=== PATIENT | female | born 1940 | race Caucasian/White ===

== ENCOUNTER → 2017-04-12 | Outpatient (CLI) | payer MEDICARE, BC ==
[~2017-04-12] MED LIST: LO-DOSE ASPIRIN81 M1 PO; LOVASTATIN20 MG PO
--- NOTE | ~2017-04-12 | MR17 ---
[facility] A Service of [facility] RADIOLOGY TEXT RESULTS PATIENT: LARISA MO LOCATION: [facility] [address] : [birth year] UNIT #: [id number] AGE: [address]: Clem Vasquez MD SEX: F ORDER DR: [id number] [place] [id number] O MR#: [id number] Acc #: [id number] NAME: LARISA MO : 1940 SEX: F STUDY DATE/TIME: 04/12/2017 15:27 UNIT: SNIV ROOM: STUDY DESCRIPTION: MR Brain WWo Contrast Attending Physician: Clem Vasquez M.D. Referring Physician: Clem Vasquez M.D. Ordering Physician: Clem Vasquez M.D. Primary Care Physician: Clem Vasquez M.D. MRI CENTER REPORT This report is preliminary unless electronic signature is present. EXAM MR brain 04/12 INDICATIONS Dizziness for the last 2-3 weeks. Some associated nausea and vomiting. TECHNIQUE Multisequence multiplanar imaging was performed through the brain before and after the IV administration of 11 mL of MultiHance contrast. COMPARISON STUDIES Comparison is made with the brain MRI dated 08/30/2010. FINDINGS Diffusion imaging reveals no evidence of acute or subacute infarct. Ventricular size and configuration are within normal limits. There is generalized atrophy. Chronic small vessel ischemic changes are present in the white matter. These appear only minimally progressive since the prior study. White matter signal is otherwise normal. No masses are identified, and there is no pathologic contrast enhancement. There is no evidence of hemorrhage. Major intracranial flow voids are maintained. Craniovertebral junction is normal. IMPRESSION 1. No acute findings in the brain. No evidence of acute or subacute stroke. No hemorrhage. 2. No masses or abnormal contrast enhancement. 3. Relatively mild chronic small vessel ischemic change in the white matter for patient age. This is only minimally progressive since the MRI of 2009. Dictated by... [facility] A Service [facility] RADIOLOGY TEXT RESULTS PATIENT: LARISA MO LOCATION: [facility] [address] : [birth year] UNIT #: [id number] AGE: [address]: Clem Vasquez MD SEX: F ORDER DR: Adrian Harper Jr., M.D. THIS IS AN ELECTRONICALLY VERIFIED REPORT Adrian Harper Jr., M.D. at 04/15/2017 5:01 PM DEE/kate TD: 04/15/2017 16:31 JOB #: [id number] MRI CENTER REPORT Page 1 of 1
--- NOTE | ~2017-04-12 | US37 ---
[facility]. [facility] A Service of [facility] RADIOLOGY TEXT RESULTS PATIENT: LARISA MO LOCATION: SNIV : 40 UNIT #: [id number] AGE: [address]: Clem Vasquez MD SEX: F ORDER DR: [id number] [place] [id number] O MR#: [id number] Acc #: [id number] NAME: LARISA MO : 1940 SEX: F STUDY DATE/TIME: 04/12/2017 11:15 UNIT: SNIV ROOM: STUDY DESCRIPTION: US Carotid W/Doppler Bilateral Attending Physician: Clem Vasquez M.D. Referring Physician: Clem Vasquez M.D. Ordering Physician: Clem Vasquez M.D. Primary Care Physician: Clem Vasquez M.D. MEDICAL IMAGING REPORT This report is preliminary unless electronic signature is present. EXAM Carotid Doppler bilateral, 04/12/17. HISTORY Vertigo, dizziness for 2 weeks with loss of balance and coordination. Evaluate for carotid stenosis. FINDINGS Magallanes-scale carotid artery images were obtained as well as Doppler waveform spectral analysis and color flow Doppler imaging. The examination was interpreted according to NASCET criteria. There is no hemodynamically significant stenosis in either carotid artery. Peak systolic velocity in the right and left internal carotid arteries is 73 cm/sec and 85 cm/sec respectively. Antegrade blood flow is seen both vertebral arteries. IMPRESSION No hemodynamically significant stenosis in either carotid artery. Dictated by... Billy De La Torre M.D. THIS IS AN ELECTRONICALLY VERIFIED REPORT Billy De La Torre M.D. at 04/12/2017 4:34 PM WILBERT/chelsea TD: 04/12/2017 15:59 JOB #: [id number] MEDICAL IMAGING REPORT Page 1 of 1
[2017-04-12 16:06] LABS: POC - CREATININE 0.81 mg/dL (0.44-1.03); POC - GFR >60.0 mL/min (>60)
== END | disposition home or self-care (01) ==
LOC: SNIV 04-11 10:30 → SMRI 11:45 → SNIV 13:30
PROVIDERS: Family Medicine
DX: R42 Dizziness and giddiness (principal)
CPT/HCPCS: 70553; 82565; 93880; A9581

== ENCOUNTER → 2017-06-14 | Day surgery (SDC) | payer MEDICARE, BC ==
--- NOTE | ~2017-06-14 | OR ---
Unit #: [id number] #: [id number] Patient: LARISA [place] [id number] [address] [address] [id number] O MR#: [id number] NAME: LARISA MO ROOM: Date of Procedure: 06/14/2017 Admission Date: 06/14/2017 Surgeon: Misael Vásquez M.D. : 1940 Attending Physician: Misael Vásquez M.D. Primary Care Physician: Clem Vasquez M.D. OPERATIVE REPORT PREOPERATIVE DIAGNOSES Colorectal cancer surveillance in a high-risk patient. The patient has family history of colon cancer and personal history of colonic adenomas. PROCEDURES PERFORMED Colonoscopy up to cecum and terminal ileum. POSTOPERATIVE DIAGNOSES The patient had mild sigmoid and descending colon diverticulosis. Otherwise, examination was normal up to cecum and terminal ileum. The quality of the prep was excellent. No polyps were seen. RECOMMENDATIONS At the patient's age of 77, further evaluations are unnecessary and not needed. She was therefore reassured. SEDATION USED MAC. DESCRIPTION OF PROCEDURE Following detailed explanation of potential risks and complications of a colonoscopy, namely perforation, bleeding, and complications related to sedation, the patient was brought to GI lab and laid in the left lateral decubitus position. A digital rectal examination was performed, which was normal. Lubricated tip of the Olympus video colonoscope was inserted through the anus and advanced under direct vision. The scope was advanced and passed up to sigmoid into descending colon. Multiple medium-sized diverticula were noted in this area. The scope tip was then navigated all the way up to cecum with visualization of the ileocecal valve and the appendiceal orifice. Preparation was excellent with good visualization and photodocumentation was obtained. Last several inches of the terminal ileum also visualized after intubation of the ileocecal valve and appeared normal. Successive segments of the colonic mucosa were examined upon withdrawal and appeared unremarkable. There being no polyps, mass lesions, or AVMs. Other than the diverticula seen earlier, no other abnormalities noted. The scope was then withdrawn. The patient returned to the recovery area. She tolerated the procedure without any postprocedure complications. Dictated by... Misael Vásquez M.D. Unit #: [id number] #: [id number] Patient: LARISA MO Clara TD: 06/14/2017 13:58 JOB #: [id number] OPERATIVE REPORT Page 1 of 1 X Misael Vásquez MD PROCEDURE OPERATIVE NOTE
== END | disposition home or self-care (01) ==
LOC: COPS 08:27
DX: Z12.11 Encounter for screening for malignant neoplasm of colon (principal); K57.30 Diverticulosis of large intestine without perforation or abscess without bleeding; Z86.010 Personal history of colon polyps; Z80.0 Family history of malignant neoplasm of digestive organs; Z90.710 Acquired absence of both cervix and uterus; Z79.82 Long term (current) use of aspirin